=== PATIENT | female | born 1970 | race Caucasian/White ===

== ENCOUNTER 2025-05-20 06:00 | Day surgery (SDC) | payer BC, SELFPAY ==
[2025-05-05 09:11] VITALS: BMI 28.4
[2025-05-05 09:53] LABS: Hematocrit 32.0 % (37.0-47.0); Hemoglobin 10.8 g/dL (12.0-16.0); Mean Corp Hgb Conc. 33.8 g/dL (33.0-37.0); Mean Corpuscular Volume 83.6 fL (81.0-99.0); Nucleated Red Blood Cells % 0 %; Platelet Count 273 10^3/uL (130-400); Red Cell Dist. Width 13.7 % (11.5-14.5)
[2025-05-05 09:56] LABS: ALT (SGPT) 19 U/L (0-35); AST (SGOT) 27 U/L (14-36); Albumin 4.5 g/dl (3.5-5.0); Alkaline Phosphatase 61 U/L (38-126); Blood Urea Nitrogen 12 mg/dl (7-17); Calcium 9.1 mg/dl (8.4-10.2); Carbon Dioxide 23 mmol/L (22-30); Chloride 105 mmol/L (98-107); Estimated Creatinine Clearance 112 ml/min; Glucose 92 mg/dl (70-99); Magnesium 1.9 mg/dl (1.6-2.3); Potassium 4.9 mmol/L (3.5-5.1); Sodium 136 mmol/L (135-145); Total Protein 7.1 g/dl (6.3-8.2); eGFR > 60.00
[2025-05-05 09:59] LABS: INR 1.23; PT 15.8 Sec (11.4-14.6)
--- NOTE | 2025-05-05 10:57 | W.PN.UPDATE ---
Update Note
Progress Note Update
Hgb 10.8-new onset-reached out to patient and PCP Dr. Gunjan Cruz for f/u
[2025-05-20] VITALS (12 sets, daily range): BP systolic 89–137; BP diastolic 50–75
[2025-05-20] MEDS: TYLENOL 1000 MG PO (07:15)
[2025-05-20 08:36] LABS: ACT-LR - POC 314 Seconds (116-155)
[2025-05-20 08:53] LABS: ACT-LR - POC 392 Seconds (116-155)
[2025-05-20 09:08] LABS: ACT-LR - POC 311 Seconds (116-155)
[2025-05-20 09:40] LABS: ACT-LR - POC 168 Seconds (116-155)
--- NOTE | 2025-05-20 09:49 | ITS.CL.ABL ---
Information Security Director - Ablation
Ablation
Procedure Report:
Primary Senior Payroll Administrator: Dr Oliverio Falcon
Procedure Date: 05/20/2025
Patient History:
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
See H&P for complete details.
Indication:
Symptomatic paroxysmal atrial fibrillation
Arrhythmia Specific History:
Prior Medical Therapies for Rate and Rhythm Control:
X Beta-sarah
[ ] Calcium channel-sarah
[ ] Amiodarone
[ ] Dronederone
[ ] Sotalol
[ ] Flecainide
[ ] Dofetilide
[ ] Options limited by bradycardia
[ ] Options limited by comorbid renal disease
Prior Procedural Therapies for AF/AFL:
[ ] Cardioversion
[ ] Pulmonary Vein Isolation
[ ] Posterior Wall Isolation
[ ] Additional lines (Specify)
[ ] Surgical Staley-MAZE or PVI (Specify)
Procedure Performed:
X AF ablation procedure (96516) -- includes LA/CS pacing, trans-septal, 3D mapping, + ICE
[ ] +IV drug (44620)
[ ] +Other Arrhythmia (04425)
[ ] +Other AF Line/ablation (60875)
Risks and expected recovery has been explained in detail. Alternative options have been explored, and in a shared-decision making fashion we have decided that this was the most appropriate procedure.
Method
NPO status confirmed. Grounding pad applied. Defibrillator pads applied. Continuous surface ECG, pulse oximetry, and blood pressure were monitored. Procedure was performed under general anesthesia, with anesthesia services.
Both groins were clipped, prepped with Chloraprep, and draped in sterile fashion. Time out was called. Local anesthesia administered with bupivacaine. The right femoral vein was accessed for catheter placement, using ultrasound guidance (images
saved to record), micro-puncture needle/wire, and modified seldinger technique. 3 sheaths were placed. The following catheters were used:
[ ] Tacticath SE (D/F Curve) ablation catheter
X Viewflex 9Fr ICE catheter
X Inquiry decapolar 6Fr diagnostic catheter
[ ] CRD Hex 6Fr
X FlexCath Contour 10 Fr with PulseSelect PFA Catheter
X Advisor HD Grid Mapping Catheter, SE
[ ] Acuson AcuNav 8 Fr ICE catheter
[ ]Other: [ ]
Intracardiac ultrasound (ICE) was carefully advanced into the right atrium to guide sheath placement over a J-wire, catheter placement, guide trans-septal puncture, identify potential complications, identify anatomic structures and ensure proper
contact between ablation catheter and tissue.
Heparin was given prior to trans-septal puncture. Heparin was given to achieve and maintain a target ACT of 300-400 seconds throughout the procedure.
Trans-septal access was performed under ICE guidance. The trans-septal puncture was performed with a SafeSept wire through a Brockenbrough needle assembly through the steerable sheath. The wire was visualized as it entered the LSPV and system
advanced under ICE guidance and fluoroscopy into the LA. The Brockenbrough needle assembly, SafeSept wire and sheath dilator were removed under negative pressure. LA pressure was measured and recorded.
ICE and 3D mapping was performed to identify relevant cardiac structures. A careful 3D map was created to assess for regions of low-voltage and abnormal electrogram signals using HD grid mapping catheter and PulseSelect catheter. Additional mapping
was performed as outlined below.
Prior to ablation, glycopyrrolate was provided. PulseSelect catheter was advanced over J-wire to the ostium of each vein. Pulmonary vein isolation was performed with ostial and antral lesions in a circumferential manner. Contact was visualized via
EAM, ICE, fluoroscopy, and EGM signals.
Following completion of ablation lesions, a post-ablation voltage/activation map was performed in sinus rhythm. Entrance and exit block were confirmed for each vein.
Catheter and sheath were removed from the left atrium and post-ablation intracardiac echo evaluation was consistent with pre-ablation with no changes and no pericardial effusion and there is no left atrial thrombus or left ventricle thrombus seen.
Electrophysiology study was performed. Hemostasis was obtained with figure of 8 stitch for each groin and with manual pressure. Protamine was used for reversal.
Estimated Blood Loss
5 mL
Complications
None
Fluoroscopy: 1.4 minutes; 2.45 mGy; DAP 0.367
LA Pressure: Pre 12 mmHg, post 9 mmHg
Baseline Intervals:
Rhythm: SR
SD: 167 ms
QRS: 92 ms
QT: 349 ms
QTc: 417 ms
A-A: 700 ms
R-R: 700 ms
Post-Procedure Intervals:
SD: 164 ms
QRS: 85 ms
QT: 386 ms
AVWB: 360 ms
AVNERP: 600/270 ms
AERP: 600/260 ms
Recommendations
- Bedrest with straight-leg precautions as ordered
- Anticipate same day discharge if patient meeting clinical metrics
- Resume home medications as indicated
- Ok to resume anticoagulation tonight if patient and groin sites stable
- PPI daily for 30 days
- Plan for follow-up in office as scheduled
Juan C Peña DO, FAC, RS
Clinical Cardiac Medical Office Technician
cc: Dr Oliverio Falcon; Dr Gunjan Cruz
--- NOTE | 2025-05-20 14:36 | W.PN.UPDATE ---
Update Note
Progress Note Update
Pt seen post PFA. Right groin site with mild ooze initially when getting OOB, manual compression, now stable, no ht/bleeding. Post EKG NSR 66, no acute changes. Resume pradaxa tonight at usual time. 30 day rx for protonix post procedure sent to
pharmacy. Followup with Dr. Falcon as scheduled. Home today if groin site/tele remain stable.
[2025-05-20 14:41] LABS: ACT-LR - POC > 397 Seconds (116-155)
== END 2025-05-20 15:30 | disposition home or self-care (01) ==
LOC: CATH 06:00
PROVIDERS: ATTENDING PHYSICIAN Internal Medicine Cardiovascular Disease; FAMILY PHYSICIAN Family Medicine; OTHER PHYSICIAN Internal Medicine
DX: I48.0 Paroxysmal atrial fibrillation (principal); D64.9 Anemia, unspecified; E89.0 Postprocedural hypothyroidism; Z79.02 Long term (current) use of antithrombotics/antiplatelets; Z79.890 Hormone replacement therapy; Z79.899 Other long term (current) drug therapy; Z85.850 Personal history of malignant neoplasm of thyroid; Z87.19 Personal history of other diseases of the digestive system; Z90.49 Acquired absence of other specified parts of digestive tract; Z87.891 Personal history of nicotine dependence
CPT/HCPCS: C1732; C1894; C1769; C1733; 36415; 75572; 80053; 83735; 85025; 85347; 85610; 86850; 86900; 86901; 93005; 93656; C1766; Q9967

== ENCOUNTER → 2025-07-01 07:56 | Outpatient (REF) | payer OTHER, SELFPAY | LOC: DHSLP 07:56 | PROVIDERS: ATTENDING PHYSICIAN Internal Medicine Cardiovascular Disease; FAMILY PHYSICIAN Family Medicine | DX: G47.19 Other hypersomnia (principal); R06.83 Snoring | CPT/HCPCS: 95800 ==